=== PATIENT | male | born 1985 | race Caucasian/White ===

== ENCOUNTER 2020-02-12 15:59 | Emergency (ER) | payer OTHER ==
[~2020-02-12] VITALS: Ht 180.3 cm; Wt 90.7 kg
[2020-02-12 15:59] VITALS: BP_SYST 167
--- NOTE | 2020-02-12 15:59 | NUR ---
Patient triaged and placed in waiting room. VSS and patient appears in no acute distress at this time. Awaiting available bed, and MD notified of need for MSE.
--- NOTE | 2020-02-12 17:52 | NUR ---
Patient called back, no response.
[2020-02-12 17:53] VITALS: BP_SYST 167
== END 2020-02-12 17:52 | disposition left against medical advice (07) ==
LOC: SED 15:59
DX: T50.991A Poisoning by other drugs, medicaments and biological substances, accidental (unintentional), initial encounter (principal); Y92.89 Other specified places as the place of occurrence of the external cause; Z53.21 Procedure and treatment not carried out due to patient leaving prior to being seen by health care provider